=== PATIENT | female | born 1950 | race Caucasian/White ===

== ENCOUNTER 2021-06-10 15:24 | Outpatient (CLI) | payer MEDICARE, OTHER ==
[2021-06-11 00:44] LABS: SARS-CoV-2 PCR by NAA Not Detected (NotDetected)
== END 2021-06-10 15:25 | disposition home or self-care (01) ==
LOC: LABBT 15:24
PROVIDERS: ATTEND Ophthalmology Retina Specialist
DX: Z01.812 Encounter for preprocedural laboratory examination (principal); H43.89 Other disorders of vitreous body; Z20.822 Contact with and (suspected) exposure to COVID-19
CPT/HCPCS: U0003; U0005

== ENCOUNTER 2021-06-13 06:32 | Day surgery (SDC) | payer MEDICARE, OTHER ==
[2021-06-10 14:29] VITALS: BMI 22.7
[~2021-06-13 06:32] MED LIST: EPINEPHrine 0.3 MG, Dextrose 50% 3 ML in Ophthalmic Irrigation Solution 500 ML IRR SCH
[2021-06-13] MEDS ORDERED: Midazolam HCl 2 mg/2 ml Vial ONE (06:50)
[2021-06-13] MEDS ORDERED: Fentanyl 100 MCG/2 ML VIAL ONE (06:50)
[2021-06-13] MEDS ORDERED: Cyclopentolate 1% Opth Drop 2 ML BOT ONE (07:16)
[2021-06-13] MEDS ORDERED: Phenylephrine 2.5% Ophth Soln 5 ML BOT ONE (07:16)
[2021-06-13] MEDS ORDERED: Bupivacaine PF 0.75% SDV 10 ML ONE (08:13)
[2021-06-13] MEDS ORDERED: Dextrose 50% Abboject 50 ML SYRINGE ONE (08:13)
[2021-06-13] MEDS ORDERED: Maxitrol 0.1% Opth Oint 3.5 GM TUBE ONE (08:13)
[2021-06-13] MEDS ORDERED: Triamcinolone 40 MG/ML VIAL ONE (08:13)
[2021-06-13] MEDS ORDERED: PROPOFOL 200 MG/20 ML VIAL ONE (08:13)
[2021-06-13] MEDS ORDERED: Lidocaine 4% PF 5 ML AMP ONE (08:13)
== END 2021-06-13 09:35 | disposition home or self-care (01) ==
LOC: SDC 06:32
PROVIDERS: ATTEND Ophthalmology Retina Specialist
PROC: 08T43ZZ Resection of Right Vitreous, Percutaneous Approach (ICD-10-PCS; principal; 2021-06-13)
PROC: 08NE3ZZ Release Right Retina, Percutaneous Approach (ICD-10-PCS; 2021-06-13)
DX: H43.311 Vitreous membranes and strands, right eye (principal); Z79.899 Other long term (current) drug therapy; Z88.0 Allergy status to penicillin
CPT/HCPCS: J2250; J2704; J3010; J3301; J3490